=== PATIENT | female | born 1950 | race Caucasian/White ===

== ENCOUNTER 2020-11-08 09:07 | Emergency (ER) | payer MEDICARE, OTHER, SELFPAY ==
[2020-11-08 09:16] VITALS: BP 179/68; PULSE 107; RESP 18; TEMP 37.2; O2SAT 98; BMI 30.2
--- NOTE | 2020-11-08 09:44 | ED_ITS ---
HPI - General Adult General Chief complaint: General Medical Stated complaint: bleeding stoma Time Seen by Provider: 11/08/20 09:18 Source: patient and family Mode of arrival: wheelchair Limitations: no limitations History of Present Illness HPI narrative: 69-year-old female with a past medical history of diabetes, hypertension, spinal bifida with ostomy to the right lower quadrant presenting to the ED with complaints of some blood in her ostomy bag that she noticed last night which resolved shortly after and then started again this morning. She reports she has had this in the past approximately 5 years ago and she had a puncture wound tear which had to be sutured with 1 stitch. She denies any injuries, dizziness, headaches, nausea /vomiting, chest pain, shortness of breath, abdominal pain, diarrhea, constipation, black or bloody stools or any other symptoms complaints or concerns at this time. Related Data Allergies Allergy/AdvReac Type Severity Reaction Status Date / Time ciprofloxacin [From CIPRO] Allergy Unknown DIARRHEA Unverified 01/27/20 17:00 Review of Systems Review of Systems: Constitutional : No Fever, No Chills, Cardiovascular : No Chest Pain, No SOB Respiratory : No Dyspnea Gastrointestinal : No abdominal pain Musculoskeletal : No Joint Swelling Skin : positive skin laceration/puncture wound to stoma area, No Foreign bodies, No rash, No surrounding erythema Neuro : No Weakness, No Numbness/tingling Psych : No SI/HI/thoughts of self injury Yes all other systems are reviewed and are negative FOR[facility]LY [facility] Past Medical History Attestation statement: The following information was validated with the patient. Medical History Diabetes HTN (hypertension) Spina bifida Surgical History History of creation of ostomy History of partial hysterectomy Social History Social History Smoked in Last 30 Days: No Use of substances other than those prescribed or required for medical reasons: No Advance Directives: Yes Advance Directives Information Provided: Yes Advance Directives on File: No Physical Exam Vital Signs: Vital Signs: Last Vital Signs Temp 99.0 F 11/08/20 09:16 Pulse 107 H 11/08/20 09:16 Resp 18 11/08/20 09:16 BP 179/68 H 11/08/20 09:16 Pulse Ox 98 11/08/20 09:16 Body Mass Index 30.2 vital signs have been reviewed as normal and appeared to be correct. Blood pressure Hypertensive 179/60. Heart rate tachycardic at 107. Respiration rate normal. Temperature normal. Oxygen saturation normal. Appearance: Alert. Oriented X3. No acute distress. Head: Normal external exam. Normocephalic. Atraumatic. Eyes: PERRLA. EOMI. Conjunctiva and sclera normal. Eyelids normal. ENT:Pharynx normal. Uvula midline. Moist mucous membranes. Neck: Normal inspection. Neck supple. FROM. No adenopathy. No meningeal signs. CVS: Normal heart rate and rhythm. Respiratory: No respiratory distress. Painless inspiration. Abdomen: Soft and nontender. Bowel sounds normal in all 4 quadrants. No distention noted. No organomegaly noted. No visible injury noted. Patient with stoma in place to right lower quadrant when she removed the bag she had a small puncture wound that was actively bleeding to the left aspect of the stoma. Then I applied pressure and when I came back it was no longer bleeding. Skin: Skin warm and dry. Normal skin color. Normal skin turgor. No rashes/lesions/lacerations noted. Neuro: Oriented X 3. Course Course Course Narrative: 69-year-old female presenting to the ED with a past medical history of spinal diff at a therefore they placed the stoma years ago presenting to the ED with a puncture wound to the left side of the stoma which was actively bleeding then when I applied pressure it stop bleeding. Therefore I cauterized that the area that was bleeding and patient refused any labs or imaging. I explained to her that she should return if any new or worsening symptoms to follow up with primary care provider. Patient understands agrees with this plan. Medical Decision Making Medical Records Medical records reviewed: Yes I reviewed the patient's medical records. Discharge Plan Discharge Clinical Impression: Laceration of stomach Patient Disposition: Home, Self-Care Instructions: Laceration Without Closure (ED) Referrals: Ronit Lewis MD [Primary Care Provider] - 2 days Print Language: Danish
[2020-11-08] MEDS: Silver Nitrate Applicator STICK..EA. 1 APPL TOPICAL (09:50)
== END 2020-11-08 10:02 | disposition home or self-care (01) ==
PROVIDERS: Emergency Provider Emergency Medicine; PCP Internal Medicine
DX: N99.528 Other complication of incontinent external stoma of urinary tract (principal); S31.113A Laceration without foreign body of abdominal wall, right lower quadrant without penetration into peritoneal cavity, initial encounter; X58.XXXA Exposure to other specified factors, initial encounter; I10 Essential (primary) hypertension; E11.9 Type 2 diabetes mellitus without complications; Q05.9 Spina bifida, unspecified; Y93.9 Activity, unspecified; Y92.9 Unspecified place or not applicable; Y99.9 Unspecified external cause status; Z93.9 Artificial opening status, unspecified
CPT/HCPCS: 17250; 99283; 99284

== ENCOUNTER 2020-11-08 18:55 | Emergency (ER) | payer MEDICARE, OTHER, SELFPAY ==
[2020-11-08 19:37] VITALS: BP 171/64; PULSE 104; RESP 16; TEMP 36.8; O2SAT 97; BMI 31.3
--- NOTE | 2020-11-08 19:49 | PC.NURSE ---
PT HAS APROX 100 ML OF HEMATURIA IN UROSTOMY BAG, SHE CAME BACK TO TRIAGE TO SHOW THE INCREASED BLEEDING.
--- NOTE | 2020-11-08 21:44 | PC.NURSE ---
PT CAME TO TRIAGE DESK MULTIPLE TIMES, ASKING WHEN SHE WOULD GO BACK. PT REPORTED HER BAG WAS FULL, AND A CLOT WAS PREVENTING HER FROM EMPTYING HER BAG. BILLING CLINICIAN CALLED AND PT WAS ASSIGNED ROOM 1.
[2020-11-08 21:58] VITALS: BP 155/57; PULSE 93; RESP 18; TEMP 36.7; O2SAT 98
--- NOTE | 2020-11-08 23:06 | ED_ITS ---
HPI - General Adult General Chief complaint: General Medical Stated complaint: Wound check Time Seen by Provider: 11/08/20 23:06 Source: patient Mode of arrival: ambulatory History of Present Illness HPI narrative: This is a 69-year-old female who re-presented after being evaluated this morning for bleeding at her stoma site. Patient states that she has had this stoma for many years and that intermittently it becomes macerated and bleeds. She states that this morning it was cauterized which seemed to stop the bleeding initially, however it restarted this evening. She denies any associated use with blood thinners. Related Data Allergies Allergy/AdvReac Type Severity Reaction Status Date / Time ciprofloxacin [From CIPRO] Allergy Unknown DIARRHEA Unverified 01/27/20 17:00 Review of Systems Review of Systems: Pertinent positives and negatives as stated in HPI 10 point review of systems otherwise negative. [facility] Past Medical History Source: nursing notes reviewed Medical History Diabetes HTN (hypertension) Spina bifida Surgical History History of creation of ostomy History of partial hysterectomy Social History Social History Advance Directives: No Advance Directives Information Provided: No Physical Exam Vital Signs: Vital Signs: Last Vital Signs Temp 98.1 F 11/08/20 21:58 Pulse 93 11/08/20 21:58 Resp 18 11/08/20 21:58 BP 155/57 H 11/08/20 21:58 Pulse Ox 98 11/08/20 21:58 Body Mass Index 31.3 VITAL SIGNS: Reviewed. GENERAL: Well developed, well nourished, in no acute distress. HEAD: Normocephalic/atraumatic EYES: PERRLA, EOMI OROPHARYNX: no oral lesions noted, posterior pharynx clear NECK: Supple, no adenopathy LUNGS: Normal breath sounds. No adventitious sounds or accessory muscle use. SpO2<98> CARDIOVASCULAR: Regular rate and rhythm without noted murmurs ABDOMEN: Soft, non-tender, non-distended with bowel sounds, Slightly erythematous stoma site with small amounts of bleeding that was controlled with direct pressure And is currently hemostatic. NEUROLOGIC: Alert and oriented x 4. Course Course Course Narrative: This is a 69-year-old female with minor bleeding at the stoma site and will be controlled with application of Surgicel although it is currently hemostatic. Patient was encouraged to follow-up with her primary care provider 1st thing in the morning for re-evaluation. On re-evaluation the site remains hemostatic, however placed squares of Surgicel over the site and provided patient with initial instructions on re- application if necessary. Patient was otherwise discharged home in stable condition. Discharge Plan Discharge Clinical Impression: Irritation at application site Patient Disposition: Home, Self-Care Additional Instructions: 1. Resume all home medications as prescribed. 2. Follow-up with your primary care provider in the next 2-3 days for re- evaluation. Return to the ER for acute worsening of your symptoms. Referrals: Physician,Unknown [Primary Care Provider] - 2 days
[2020-11-08 23:41] VITALS: BP 135/56; PULSE 83; RESP 18; O2SAT 97
--- NOTE | 2020-11-08 23:42 | PC.NURSE ---
pt stoma has no further bleeding, sergicil applied to the site by the provider. pt elliott well. and feels ready for discharge.
== END 2020-11-09 00:15 | disposition home or self-care (01) ==
PROVIDERS: Emergency Provider Student in an Organized Health Care Education/Training Program
DX: N99.528 Other complication of incontinent external stoma of urinary tract (principal); Z93.9 Artificial opening status, unspecified; Q05.9 Spina bifida, unspecified; I10 Essential (primary) hypertension; E11.9 Type 2 diabetes mellitus without complications
CPT/HCPCS: 99283; 99284

== ENCOUNTER 2020-11-09 04:25 | Emergency (ER) | payer MEDICARE, OTHER, SELFPAY ==
[2020-11-09 04:29] VITALS: BP 130/80; BP 146/60; PULSE 111; PULSE 93; RESP 18; TEMP 36.9; O2SAT 97; O2SAT 98; BMI 31.3
--- NOTE | 2020-11-09 06:24 | PC.NURSE ---
Stitch appled to ostomy by . Assisted by PATRICK Platt. See provider notes for further details. Bleeding from ostomy has stopped. Ostomy bag changed with patient's own supplies. Will continue to monitor.
--- NOTE | 2020-11-09 06:49 | ED.GENADULT ---
HPI - General Adult General Chief complaint: General Medical Stated complaint: BLEEDING STOMA SINCE 11/07/20 PER PT Time Seen by Provider: 11/09/20 05:35 Source: patient Mode of arrival: EMS History of Present Illness HPI narrative: 69-year-old female with history of spina bifida and occasional mucosal bleeding from her urostomy again presents for the same. This is the 3rd visit for this within the past 24 hours. Related Data Allergies Allergy/AdvReac Type Severity Reaction Status Date / Time ciprofloxacin [From CIPRO] Allergy Unknown DIARRHEA Verified 11/09/20 04:32 Review of Systems Review of Systems: Pertinent positives and negatives as stated in HPI 10 point review of systems is otherwise negative. [facility]LY [facility] Past Medical History Source: nursing notes reviewed Medical History Diabetes HTN (hypertension) Spina bifida Surgical History History of creation of ostomy History of partial hysterectomy Social History Social History Advance Directives: No Advance Directives Information Provided: No Physical Exam Vital Signs: Vital Signs: Last Vital Signs Temp 98.4 F 11/09/20 04:29 Pulse 93 11/09/20 04:29 Resp 18 11/09/20 04:29 BP 146/60 H 11/09/20 04:29 Pulse Ox 98 11/09/20 04:29 Body Mass Index 31.3 VITAL SIGNS: Reviewed. GENERAL: Well developed, well nourished, in no acute distress. HEAD: Normocephalic/atraumatic EYES: PERRLA, EOMI OROPHARYNX: no oral lesions noted, posterior pharynx clear NECK: Supple, no adenopathy LUNGS: Normal breath sounds. No adventitious sounds or accessory muscle use. SpO2<98> CARDIOVASCULAR: Regular rate and rhythm without noted murmurs ABDOMEN: Soft, non-tender, non-distended with bowel sounds., Small mucosal bleed at approximately the 4 o'clock position from ostomy NEUROLOGIC: Alert and oriented x 4. Course Course Course Narrative: 69-year-old female with history and clinical presentation consistent with mucosal bleed at the periphery of her ostomy. Site was injected with 1% lidocaine with epi which was then followed with a single [id number] suture with 5-0 nylon and then although site was apparently hemostatic at this point additional Surgicel was applied. Good hemostasis was obtained, patient is feeling better, but wishes to be observed for an additional amount of time to ensure that it will not rebleed. Oncoming ER provider was informed of the plan, but patient is otherwise discharged with instructions to follow-up for removal of the suture in 3 days. Discharge Plan Discharge Clinical Impression: Mucosal bleeding Patient Disposition: Home, Self-Care Instructions: Care For Your Stitches (ED) Additional Instructions: 1. Please follow-up with your primary care provider in 3 days for removal of the single suture. Return to the ER for acute worsening of your symptoms. Referrals: Ronit Lewis MD [Primary Care Provider] - 2 days ( Please remove a single suture an ostomy mucosa in 3 days.)
== END 2020-11-09 09:54 | disposition home or self-care (01) ==
PROVIDERS: Emergency Provider Emergency Medicine Emergency Medical Services; PCP Internal Medicine
DX: N99.520 Hemorrhage of incontinent external stoma of urinary tract (principal); Y83.8 Other surgical procedures as the cause of abnormal reaction of the patient, or of later complication, without mention of misadventure at the time of the procedure; Y92.9 Unspecified place or not applicable; I10 Essential (primary) hypertension; E11.9 Type 2 diabetes mellitus without complications; Q05.9 Spina bifida, unspecified
CPT/HCPCS: 12001; 99283; 99284

== ENCOUNTER → 2020-11-14 10:21 | Outpatient (BNVA) | payer MEDICARE, OTHER, SELFPAY | PROVIDERS: PCP Internal Medicine; Visit Provider Surgery | DX: N99.528 Other complication of incontinent external stoma of urinary tract (principal) | CPT/HCPCS: 99212 ==

== ENCOUNTER 2022-01-21 21:18 | Emergency (ER) | payer MEDICARE, OTHER, SELFPAY ==
[2022-01-21 21:38] VITALS: BP 154/70; PULSE 109; RESP 18; TEMP 36.6; O2SAT 96; BMI 35.9
--- NOTE | 2022-01-21 21:40 | ED.GIBLEED ---
HPI - GI Bleed General Chief complaint: Recheck/Abnormal Lab/Rx Stated complaint: bleeding around stoma Time Seen by Provider: 01/21/22 21:40 Source: patient Mode of arrival: ambulatory Limitations: no limitations History of Present Illness HPI Narrative: Stoma bleeding, in the past this has happened and always needs a stitch. Onset (ago): hour(s) Severity: mild Relieving factors: none Exacerbating factors: none Related Data Home Medications Medication Instructions Recorded Confirmed blood sugar diagnostic #10 ea 11/14/20 11/14/20 insulin aspart U-100 100 unit/mL 10 - 25 unit subcut TID 11/14/20 11/14/20 (3 mL) subcutaneous pen insulin degludec 200 unit/mL (3 76 unit subcut QAM 11/14/20 11/14/20 mL) subcutaneous pen lisinopril 10 mg tablet 10 mg PO DAILY 11/14/20 11/14/20 metformin 1,000 mg tablet 1,000 mg PO BID 11/14/20 11/14/20 pen needle, diabetic 31 gauge x #1,200 ea 11/14/20 11/14/2009/24 Allergies Allergy/AdvReac Type Severity Reaction Status Date / Time ciprofloxacin [From CIPRO] Allergy Unknown DIARRHEA Verified 11/14/20 10:40 Review of Systems Constitutional: Constitutional: Reports no additional constitutional complaints Eyes: Eyes: Reports no additional eye complaints ENT: Denies dizziness Cardiovascular: Cardiovascular: Reports no additional cardiovascular complaints Respiratory: Respiratory: Reports as per HPI Gastrointestinal: Gastrointestinal: Reports no additional gastrointestinal complaints Genitourinary: Genitourinary: Reports no additional female genitourinary complaints Musculoskeletal: Musculoskeletal: Reports no additional musculoskeletal complaints Integumentary/Breasts: Skin/Breast: Denies rash Neurologic: Reports system reviewed and no additional complaints, except as documented, Denies dizziness and Denies Sensory deficit (Neuro) Psychiatric: Psychiatric: Denies anxiety PMFSH Past Medical History Medical History Diabetes HTN (hypertension) Spina bifida Surgical History History of creation of ostomy History of partial hysterectomy Family History Family History Mother Leukemia Social History Social History Alcohol intake: never Patient Tobacco Use Status: Never used Tobacco Advance Directives: No Advance Directives Information Provided: No Physical Exam Vital Signs: Vital Signs: Last Vital Signs Temp 97.9 F 01/21/22 21:38 Pulse 90 01/21/22 22:05 Resp 18 01/21/22 22:05 BP 146/54 H 01/21/22 22:05 Pulse Ox 97 01/21/22 22:05 O2 Del Method 01/21/22 22:05 BMI result Body Mass Index 35.9 Const: General: healthy appearing Nutritional Appearance: average body habitus Orientation/consciousness: oriented to person and patient oriented x3 Limitations: no limitations HEENT: Head: Yes normal to inspection Ears: external ears normal General nose exam: Normal external nose present Mouth: Normal oral and palatal mucosa present and oropharynx normal Throat: Yes posterior oropharynx normal Eyes: General: appearance normal, both eyes and all related structures Neck: Other: supple Neck: Yes normal visual inspection Chest: Chest palpation & inspection: normal inspection of the chest Resp: Auscultation: clear to auscultation bilaterally Cardio: Jugular venous distension: no JVD Rate: regular rate Rhythm: regular rhythm Heart sounds: S1 normal heart sound present and S2 normal heart sound present GI: Other: urinary stoma, blood tinged urine but no active bleeding. Palpation (GI): Soft to palpation, nontender and No hepatosplenomegaly present Auscultation: normal bowel sounds : General: Yes no CVA tenderness Back/Spine/Pelvis: Back: no CVA tenderness Skin: General skin exam: no rashes or lesions noted Neuro: General: oriented to person and patient oriented x3 Cranial nerves: Yes CN's II-XII intact bilaterally Motor exam (neuro): 5/5 motor strength present throughout Sensory Exam: No Sensory deficit (Neuro) Extrem: General: Yes normal to inspection Psych: Appearance: grossly normal Course Reevaluation(s) Reevaluation #1: Plan is to observe patient for 30 minutes, if no further bleeding will dc home Time: 22:40 Procedures Procedure Narrative Procedure Narrative: patient prepped and draped, 1% lido with anesthesia used, pin hole closed with 2 x 4-0 nylon sutures Discharge Plan Discharge Clinical Impression: Complication of urostomy Patient Disposition: Home, Self-Care Additional Instructions: suture removal in 7 days Prescriptions: No Action Tresiba FlexTouch U-200 200 unit/mL (3 mL) insulin pen 76 unit subcut QAM insulin aspart U-100 100 unit/mL (3 mL) insulin pen 10 - 25 unit subcut TID lisinopril 10 mg tablet 10 mg PO DAILY metformin 1,000 mg tablet 1,000 mg PO BID (DME) FreeStyle Lite Strips Strip See Rx Instructions Not Applicable TID-QID Qty: 10 Rx Instructions: As directed (DME) pen needle, diabetic 31 gauge x 5/16 needle See Rx Instructions .ROUTE QID Qty: 1200 Rx Instructions: As directed Referrals: Physician,Cy J [Primary Care Provider] - 1 week
[2022-01-21 22:05] VITALS: BP 146/54; PULSE 90; RESP 18; O2SAT 97
--- NOTE | 2022-01-21 22:30 | PC.NURSE ---
Lido 2% epi 1:200,[address] Bran
--- NOTE | 2022-01-21 23:32 | PC.NURSE ---
Pt a&o,no sob or chest pain, reviewed discharge instructions with pt. pt verbalized understanding.
== END 2022-01-21 23:32 | disposition home or self-care (01) ==
PROVIDERS: Emergency Provider Emergency Medicine
DX: N99.520 Hemorrhage of incontinent external stoma of urinary tract (principal); E11.9 Type 2 diabetes mellitus without complications; I10 Essential (primary) hypertension; Q05.9 Spina bifida, unspecified; Z79.4 Long term (current) use of insulin
CPT/HCPCS: 12001; 99282; 99284

== ENCOUNTER 2022-01-29 12:40 | Emergency (ER) | payer MEDICARE, OTHER, SELFPAY ==
[2022-01-29 13:07] VITALS: BP 154/61; PULSE 88; RESP 16; TEMP 36.9; O2SAT 97; BMI 34.6
[2022-01-29 14:17] VITALS: BP 150/62; PULSE 82; RESP 18; TEMP 36.6; O2SAT 96
--- NOTE | 2022-01-29 14:19 | PC.NURSE ---
patient a&ox3, vss, pt states she was directed by provider to come to the ed to have sutures removed, stoma is beefy red, awaiting provider, will continue to monitor
--- NOTE | 2022-01-29 14:40 | ED_ITS ---
HPI - Wound/Laceration General Chief Complaint: Wound/Laceration Stated Complaint: stitch removal Time Seen by Provider: 01/29/22 12:51 Source: patient Mode of arrival: wheelchair Limitations: no limitations History of Present Illness HPI narrative: 71yo female with history of spina bifida with urostomy 40 plus years with granulation tissue that often bleeds necessitating cauterization or stitch placement here for stitch removal after they were placed 8 days ago in the ED. No complaints. Related Data Home Medications Medication Instructions Recorded Confirmed blood sugar diagnostic #10 ea 11/14/20 11/14/20 insulin aspart U-100 100 unit/mL 10 - 25 unit subcut TID 11/14/20 11/14/20 (3 mL) subcutaneous pen insulin degludec 200 unit/mL (3 76 unit subcut QAM 11/14/20 11/14/20 mL) subcutaneous pen lisinopril 10 mg tablet 10 mg PO DAILY 11/14/20 11/14/20 metformin 1,000 mg tablet 1,000 mg PO BID 11/14/20 11/14/20 pen needle, diabetic 31 gauge x #1,200 ea 11/14/20 11/14/2009/24 Allergies Allergy/AdvReac Type Severity Reaction Status Date / Time ciprofloxacin [From CIPRO] Allergy Unknown DIARRHEA Verified 11/14/20 10:40 Review of Systems Review of Systems: Yes all other systems are reviewed and are negative Constitutional: Constitutional: Reports no additional constitutional complaints, Denies body ache(s), Denies chills, Denies fever(s), Denies he adache(s) and Denies weakness Eyes: Eyes: Reports no additional eye complaints and Denies change in vision ENT: Reports system reviewed and no additional complaints, except as documented, Denies dizziness, Denies headache(s), Denies nasal congestion, Denies nasal discharge and Denies neck pain Cardiovascular: Cardiovascular: Reports no additional cardiovascular complaints, Denies chest pain, Denies leg edema and Denies dyspnea Respiratory: Respiratory: Reports no additional respiratory complaints, Denies cough and Denies dyspnea Gastrointestinal: Gastrointestinal: Reports no additional gastrointestinal complaints, Denies abdominal pain, Denies diarrhea, Denies nausea and Denies vomiting Genitourinary: Genitourinary: Reports no additional female genitourinary complaints and Denies urinary incontinence Musculoskeletal: Musculoskeletal: Reports no additional musculoskeletal complaints, Denies back pain, Denies arthralgias, Denies joint swelling, Denies neck pain, Denies numbness and Denies tingling Integumentary/Breasts: Skin/Breast: Reports system reviewed and no additional complaints, except as docu and Denies rash Neurologic: Reports system reviewed and no additional complaints, except as documented, Denies Abnormal speech present, Denies dizziness, Denies headache(s), Denies numbness, Denies tingling and Denies weakness PMFSH Past Medical History Attestation statement: The following information was validated with the patient. Source: old records reviewed and nursing notes reviewed Medical History Diabetes HTN (hypertension) Spina bifida Surgical History History of creation of ostomy History of partial hysterectomy Family History Family History Mother Leukemia Social History Social History Alcohol intake: never Patient Tobacco Use Status: Never used Tobacco Use of substances other than those prescribed or required for medical reasons: No Advance Directives: Yes Advance Directives Information Provided: No Advance Directives on File: No Physical Exam Vital Signs: Vital Signs: Last Vital Signs Temp 97.9 F 01/29/22 14:17 Pulse 82 01/29/22 14:17 Resp 18 01/29/22 14:17 BP 150/62 H 01/29/22 14:17 Pulse Ox 96 01/29/22 14:17 O2 Del Method 01/29/22 14:17 BMI result Body Mass Index 34.6 Const: General: cooperative, healthy appearing, comfortable and no acute distress Orientation/consciousness: patient oriented x3 Limitations: no limitations HEENT: Head: Yes normal to inspection Ears: hearing grossly normal bilaterally General nose exam: Normal external nose present Face and sinus: Yes normal facial exam Mouth: Normal oral and palatal mucosa present Throat: Yes posterior oropharynx normal Eyes: General: appearance normal, both eyes and all related structures Pupils: Equal, round and reactive pupils present Neck: Neck: Yes normal visual inspection Chest: Chest palpation & inspection: normal inspection of the chest Resp: Effort & Inspection: normal respiratory effort Auscultation: clear to auscultation bilaterally Cardio: Rate: regular rate Rhythm: regular rhythm Peripheral pulses: Peripheral pulses 2+ throughout GI: Other: urostomy RLQ-stitches present at 9 o clock position (#2) Inspection: Yes normal to inspection Palpation (GI): Soft to palpation and nontender Auscultation: normal bowel sounds Back/Spine/Pelvis: Thoracic/Lumbar Spine: thoracic and lumbar spine normal to inspection Skin: General skin exam: no rashes or lesions noted Neuro: General: patient oriented x3, no focal motor deficits and normal sensation to monofilament Cranial nerves: Yes Equal, round and reactive pupils present Cognition (Neuro): normal cognition Speech: No Abnormal speech present Gait exam (Neuro): Normal gait present Motor exam (neuro): 5/5 motor strength present throughout Extrem: General: Yes normal to inspection Course Course Course Narrative: Patient monitored for one hour with no bleeding noted from site. MDM - Wound/Laceration MDM Narrative Medical decision making narrative: 71 yo female here for suture removal from urostomy after being placed in the ED for granulation tissue that was bleeding. Patient has no complaints. Medical Records Attestation: I reviewed the patient's medical records. Lab Data Attestation: I reviewed the patient's lab results. Procedures Procedure Narrative Procedure Narrative: 2 sutures were removed from the stoma. With even gentle manipulation there was bleeding noted from the site. Improved with direct pressure. Will monitor patient for brief time in ED. Discharge Plan Discharge Clinical Impression: Encounter for removal of sutures Patient Disposition: Home, Self-Care Instructions: Stitches Removal (ED) Prescriptions: No Action Tresiba FlexTouch U-200 200 unit/mL (3 mL) insulin pen 76 unit subcut QAM insulin aspart U-100 100 unit/mL (3 mL) insulin pen 10 - 25 unit subcut TID lisinopril 10 mg tablet 10 mg PO DAILY metformin 1,000 mg tablet 1,000 mg PO BID (DME) FreeStyle Lite Strips Strip See Rx Instructions Not Applicable TID-QID Qty: 10 Rx Instructions: As directed (DME) pen needle, diabetic 31 gauge x 5/16 needle See Rx Instructions .ROUTE QID Qty: 1200 Rx Instructions: As directed Interventions: ED Discharge Assessment Last Done: 01/29/22 15:39 Discharge Date/Time: 01/29/22 15:41
== END 2022-01-29 15:41 | disposition home or self-care (01) ==
PROVIDERS: Emergency Provider Emergency Medicine; PCP Internal Medicine
DX: Z48.02 Encounter for removal of sutures (principal)
CPT/HCPCS: 99283; 99284